=== PATIENT | female | born 1970 | race African-American/Black ===

== ENCOUNTER 2017-07-05 14:08 | Outpatient (CLI) | payer BC | END 2017-07-05 19:22 | disposition home or self-care (01) | LOC: LAB 14:08 | DX: R10.9 Unspecified abdominal pain (principal) | CPT/HCPCS: 87086; 87088 ==

== ENCOUNTER 2019-12-18 17:15 | Outpatient (CLI) | payer OTHER | END 2019-12-18 22:55 | disposition home or self-care (01) | LOC: RAD 17:15 | DX: U07.1 COVID-19 (principal) ==

== ENCOUNTER 2020-06-11 12:24 | Outpatient (CLI) | payer OTHER | END 2020-06-11 19:03 | disposition home or self-care (01) | LOC: RAD 12:24 | PROVIDERS: ATTEND Nurse Practitioner Family | DX: M54.5 Low back pain (principal); M54.6 Pain in thoracic spine ==

== ENCOUNTER 2020-10-12 17:22 | Outpatient (CLI) | payer OTHER | END 2020-10-12 22:06 | disposition home or self-care (01) | LOC: RAD 17:22 | PROVIDERS: ATTEND Nurse Practitioner Primary Care | DX: M25.561 Pain in right knee (principal) ==

== ENCOUNTER 2020-11-04 09:28 | Outpatient (CLI) | payer OTHER | END 2020-11-04 22:45 | disposition home or self-care (01) | LOC: MAMMO 09:28 | PROVIDERS: ATTEND Nurse Practitioner Primary Care | DX: N64.4 Mastodynia (principal) | CPT/HCPCS: G0279 ==

== ENCOUNTER 2021-02-04 09:54 | Outpatient (CLI) | payer OTHER | END 2021-02-04 19:30 | disposition home or self-care (01) | LOC: RAD 09:54 | PROVIDERS: ATTEND Nurse Practitioner Family | DX: M81.0 Age-related osteoporosis without current pathological fracture (principal) ==

== ENCOUNTER 2021-07-25 12:35 | Outpatient (CLI) | payer OTHER | END 2021-07-25 18:55 | disposition home or self-care (01) | LOC: RAD 12:35 | PROVIDERS: ATTEND Nurse Practitioner Family | DX: M41.9 Scoliosis, unspecified (principal) ==

== ENCOUNTER 2021-08-03 01:53 | Emergency (ER) | payer OTHER ==
[~2021-08-03] VITALS: Ht 170.2 cm; Wt 90.3 kg
[2021-08-03 02:57] LABS: POTASSIUM 4.2 mmol/L (3.6-5.2)
[2021-08-03 03:04] LABS: PLATELET COUNT 258 K/uL (152-353)
[2021-08-03 03:25] VITALS: BP 151/95; TEMP 98.1
== END 2021-08-03 03:30 | disposition home or self-care (01) ==
LOC: ED 01:53
PROVIDERS: Emergency Medicine
DX: J06.9 Acute upper respiratory infection, unspecified (principal); R07.89 Other chest pain; R05.8 Other specified cough
CPT/HCPCS: 36415; 80048; 85027; 93005; 96372; 99283; J0696; J1100

== ENCOUNTER 2021-08-24 13:09 | Outpatient (CLI) | payer OTHER | END 2021-08-24 18:54 | disposition home or self-care (01) | LOC: MAMMO 13:09 | PROVIDERS: ATTEND Nurse Practitioner Primary Care | DX: N63.0 Unspecified lump in unspecified breast (principal); N64.59 Other signs and symptoms in breast | CPT/HCPCS: G0279 ==

== ENCOUNTER 2022-02-13 07:47 | Outpatient (CLI) | payer OTHER | END 2022-02-13 19:19 | disposition home or self-care (01) | LOC: MAMMO 07:47 | PROVIDERS: ATTEND Nurse Practitioner Family | DX: R92.8 Other abnormal and inconclusive findings on diagnostic imaging of breast (principal); M40.204 Unspecified kyphosis, thoracic region; Z12.31 Encounter for screening mammogram for malignant neoplasm of breast | CPT/HCPCS: G0279 ==

== ENCOUNTER 2022-10-05 10:36 | Outpatient (CLI) | payer OTHER | END 2022-10-05 19:05 | disposition home or self-care (01) | LOC: RAD 10:36 | PROVIDERS: ATTEND Physician Assistant | DX: M54.6 Pain in thoracic spine (principal) ==

== ENCOUNTER 2023-01-18 11:43 | Outpatient (CLI) | payer OTHER | END 2023-01-18 20:18 | disposition home or self-care (01) | LOC: MAMMO 11:43 | PROVIDERS: ATTEND Nurse Practitioner Family | DX: N64.4 Mastodynia (principal) | CPT/HCPCS: G0279 ==